=== PATIENT | male | born 1990 | race African-American/Black ===

== ENCOUNTER 2024-03-24 15:18 | Emergency (ER) | payer SELFPAY ==
[~2024-03-24] VITALS: Ht 172.7 cm; Wt 84.1 kg
[2024-03-24] MEDS ORDERED: NS 1,000 ML IV ONE ×3 (16:00→19:00)
[2024-03-24] MEDS ORDERED: Ondansetron 4 MG/2 ML VIAL IV ONE (16:00)
[2024-03-24 16:13] LABS: ALBUMIN 4.2 g/dL (3.5-5.0); BILIRUBIN,TOTAL 0.8 mg/dL (0.2-1.2); CALCIUM 8.9 mg/dL (8.4-10.2); CREATININE, serum 1.14 mg/dL (0.72-1.25); POTASSIUM 3.2 mEq/L (3.5-4.5); TOTAL PROTEIN 7.3 g/dl (6.2-8.1)
[2024-03-24 16:18] LABS: HEMOGLOBIN 15.5 g/dl (13.5-18.0); MEAN CELL VOLUME 77 fl (80.0-100.0); MEAN CORPUSCULAR HEMOGLOBIN 25 pg (27-31); MEAN CORPUSCULAR HGB CONC 32 g/dl (33.0-37.0); MEAN PLATELET VOLUME 11.6 fl (7.4-10.4); PLATELET COUNT 197 K/mm3 (130-400); RED BLOOD COUNT 6.26 M/mm3 (4.20-5.60); REDCELL DISTRIBUTION WIDTH-CV 17.6 % (11.5-14.5)
[2024-03-24 16:19] LABS: INR 1.2 (0.8-3.0)
[2024-03-24 16:53] LABS: ANISOCYTOSIS 1+; EOSINOPHIL 1 % (0-4); LYMPHOCYTE 50 % (20.0-51.0); NEUTROPHILS 44 % (42.0-75.2); PLATELET ESTIMATE NORMAL (NORMAL)
[2024-03-24 16:54] LABS: MICROCYTOSIS 1+; TARGET CELLS 1+
[2024-03-24 16:58] LABS: PH 5.5 (5.0-8.5); URINE APPEARANCE CLEAR (CLEAR/HAZY); URINE BLOOD TRACE (NEGATIVE); URINE COLOR YELLOW (YELLOW); URINE GLUCOSE NEGATIVE (NEGATIVE); URINE KETONE TRACE (NEGATIVE); URINE NITRATE NEGATIVE (NEGATIVE); URINE PROTEIN(semi-quant) 2+ (NEGATIVE)
[2024-03-24 17:07] LABS: COLLECTION METHOD CLEAN CATCH
[2024-03-24 17:11] LABS: TRICYCLIC ANTIDEPRESS URINE NEGATIVE (NEGATIVE)
[2024-03-24] MEDS ORDERED: Ketorolac 30 MG/ML VIAL IV ONE (17:30)
[2024-03-24] MEDS ORDERED: Amoxicillin/Clavulanate K+ 875/125 MG TAB PO ONE (19:00)
[2024-03-24] MEDS ORDERED: FLEXERIL 1010 MG/TAB PO (19:47)
[2024-03-24] MEDS ORDERED: AMOXICILLIN 8751 TAB PO (19:47)
[2024-03-24 20:15] VITALS: BP 119/82; PULSE 62; TEMP 99.2
== END 2024-03-24 20:20 | disposition home or self-care (01) ==
LOC: COL.ER 15:18 → EDBD 15:19 → COL.ER 20:20
PROVIDERS: Family Medicine
DX: S46.912A Strain of unspecified muscle, fascia and tendon at shoulder and upper arm level, left arm, initial encounter (principal); S00.03XA Contusion of scalp, initial encounter; X58.XXXA Exposure to other specified factors, initial encounter
CPT/HCPCS: J1885; J2405; J7030